=== PATIENT | male | born 1940 | race Caucasian/White ===

== ENCOUNTER → 2019-09-21 | Outpatient (CLI) | payer OTHER | LOC: SJCVC 14:18 | DX: I49.3 Ventricular premature depolarization (principal); I10 Essential (primary) hypertension; I73.9 Peripheral vascular disease, unspecified; R60.9 Edema, unspecified ==

== ENCOUNTER → 2019-10-04 | Outpatient (CLI) | payer OTHER | END | disposition home or self-care (01) | LOC: SJCVCIMAG 08:35 | DX: I49.3 Ventricular premature depolarization (principal); I10 Essential (primary) hypertension; E78.5 Hyperlipidemia, unspecified; I73.9 Peripheral vascular disease, unspecified; F17.210 Nicotine dependence, cigarettes, uncomplicated; Z79.82 Long term (current) use of aspirin; Z79.899 Other long term (current) drug therapy ==

== ENCOUNTER → 2020-04-05 | Outpatient (CLI) | payer OTHER ==
[~2020-04-05] MED LIST: ASA81BEC PO; FUROSEMIDE 20 M20 M1 PO; LISINOPRIL30 MG PO; POTASSIUM CHLO10 ME1 PO; PROAIR HFA8.5 GM INH
== END ==
LOC: SJCVC 13:04
PROVIDERS: ATTEND Internal Medicine
DX: R94.31 Abnormal electrocardiogram [ECG] [EKG] (principal); I10 Essential (primary) hypertension; I49.3 Ventricular premature depolarization; I73.9 Peripheral vascular disease, unspecified; E78.5 Hyperlipidemia, unspecified; Z79.899 Other long term (current) drug therapy

== ENCOUNTER 2020-04-10 07:45 | Inpatient (IN) | payer OTHER ==
[~2020-04-10] VITALS: Ht 188 cm; Wt 102.5 kg
[2020-04-10 07:45] VITALS: BP 116/49
[2020-04-10] MEDS ORDERED: LISINOPRIL30 MG PO (07:49)
[2020-04-10] MEDS ORDERED: PROAIR HFA8.5 GM INH ×2 (07:49)
[2020-04-10] MEDS ORDERED: FUROSEMIDE 20 M20 M1 PO (07:49)
[2020-04-10] MEDS ORDERED: ASA81BEC PO (07:49)
[2020-04-10] MEDS ORDERED: POTASSIUM CHLO10 ME1 PO (07:49)
[2020-04-10 11:34] LABS: BASOPHILS 0.4 % (0.0-2.0); EOSINOPHILS 0.1 % (0.0-3.0); HEMATOCRIT 45.2 % (42.0-52.0); HEMOGLOBIN 14.8 gm/dL (14.0-18.0); LYMPHOCYTES 6.7 % (24.0-44.0); MCH 30.5 pg (26.0-34.0); MCHC 32.8 g/dL (28.0-37.0); MCV 92.8 fL (80.0-100.0); MONOCYTES 4.1 % (1.0-8.0); PLATELET COUNT 119 thou/uL (150-400); POLYS 88.7 % (36.0-66.0); RBC 4.87 mil/uL (4.50-6.00); RDW 14.4 % (10.5-14.5); WBC 14.7 thou/uL (4.0-11.0)
[2020-04-10 11:45] LABS: CALCIUM 8.9 mg/dL (8.5-10.1); CREATININE 2.1 mg/dL (0.7-1.3)
[2020-04-10 11:48] LABS: APTT 32.1 Seconds (24.5-32.8)
[2020-04-10 13:46] VITALS: BP 176/72
[2020-04-10 13:50] VITALS: BP 158/67
[2020-04-10 16:46] VITALS: BP 172/68
--- NOTE | 2020-04-10 19:18 | NUR ---
1430 PT ADMITTED TO 3W, ROOM 363, PT ALERT AND ORIENTED X4, DENIES ANY NAUSEA AND VOMITTING. COMPLAINS OF LEFT GROIN PAIN, TOLERABLE UNTIL MOVEMENT. DESIGN SUPERVISOR PLACED ON PT, SR HR IN THE 80'S TO 90'S. PT ORIENTED TO ROOM. CONSENTS SIGNED BY PT. PT IS ON ROOM AIR, ASSESSMENT AND ADMISSION COMPLETED. PT IS UP AD ADILENE TO THE BATHRROM. CALL LIGHT AND TABLE WITHIN REACH. BED AT LOWEST LEVEL. DENIES ANY NEEDS WILLIAM.
[2020-04-10 19:41] VITALS: BP 140/71
--- NOTE | 2020-04-10 23:31 | NUR ---
ASSUMED CARE OF PATIENT AT 1900. BP ELEVATED. TRACK SUBWAY REPAIR SUPERVISOR NOTIFIED, ORDERS RECIEVED TO TREAT. COVID TEST NEGATIVE, ELECTRIC UTILITY LINEWORKER, TRACK SUBWAY REPAIR SUPERVISOR AND DR SANTANA NOTIFIED. ORDERS TO DC ENHANCED PRECAUTIONS. LET PATIENT KNOW HE MAY BE MOVED TO ANOTHER UNIT. POC GOALS ESTABLISHED, WILL CONTINUE TO MONITOR.
[2020-04-11] VITALS (8 sets, daily range): BP systolic 140–185; BP diastolic 68–92
[2020-04-11 07:37] LABS: HEMOGLOBIN 13.8 gm/dL (14.0-18.0); MCH 30.4 pg (26.0-34.0); MCHC 32.9 g/dL (28.0-37.0); MCV 92.4 fL (80.0-100.0); RBC 4.54 mil/uL (4.50-6.00); RDW 14.4 % (10.5-14.5); WBC 7.1 thou/uL (4.0-11.0)
[2020-04-11 07:55] LABS: CALCIUM 8.8 mg/dL (8.5-10.1); CREATININE 1.3 mg/dL (0.7-1.3); POTASSIUM 4.7 mmol/L (3.5-5.1)
--- NOTE | 2020-04-11 11:03 | NUR ---
INITIAL ASSESSMENT: Received consult. MYESHA reviewed chart and spoke with nursing and attending physician. Pt was admitted from home due to DVT. Pt placed in Enhanced Isolation to r/o COVID-19. Pt's test is negative. Pt to transfer to when a room is available. Pt is currently on IV abx. MYESHA placed call to pt's room. No answer. MYESHA left voice message for listed contact number: [phone]. Per chart, pt is alert/orientated x 4. Pt lives at home. Pt's PCP is Dr. Heriberto Marmolejo. SW is following to assist as needed with discharge planning.
--- NOTE | 2020-04-11 12:09 | NUR ---
RN ASSUMED PT'S CARE AT 0700AM , PT IS A&OX3, PT IS CONTINUING IV ABX AND BRETHING TREATMENT, PT 'S ISOLATION HAS DC DUE TO NEGATIVE COVID, PT TRANSFERED 4W ROOM 453 AT 1140AM, RN HAS GIVING REPORT .
--- NOTE | 2020-04-11 12:32 | NUR ---
At 1156,pt transfered to 453 from 3west after report received from Serge rosales. Assessment completed.vss.No changes in previous assessment.Pt brother here to visit.Updates given.Pt wanted to dc home today if possible but rn informed pt that doctor should be making decision when pt condition stable.No verbal c/o. Will continue to monitor.
--- NOTE | 2020-04-11 16:09 | NUR ---
PT WAS TRANSFERED FROM 3 AFTER PT TESTED NEGATIVE FOR COVID. PT WAS ADMITTED RELATED TO DVT. PT IS ON IV ABX. CM CALLED AND SPOKE WITH PT OVER THE PHONE THIS AFTERNOON. PT INDICATED HE RESIDES ALONE IN A HOUSE WITH 3 STEPS TO ENTER AND NO STEPS INSIDE. 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 PT INDICATED NO DME OR HH HX. PT INDICATED NO RESP EQUIPTMENT AT HOME CURRENTLY. PT INDICATED HE HAS TWO OLD INHALERS BUT THAT HE HADN'T USED THEM AT ALL. PT INDICATED HIS PCP IS DR. BELINDA PUENTE (NOT SPELLED CORRECTLY). PT INDICATED HIS BROTHER IS HIS AUTHORIZED CONTACT. HIS ADDRESS AND LISTED PHARMACY ARE CORRECT. PT INDICATED HE PLANS TO RETURN HOME ONCE MEDICALLY STABLE. CM TO FOLLOW INDICATED WITH DC PLANNING.
--- NOTE | 2020-04-12 04:01 | NUR ---
ASSUMED CARE OF PT AT 1900HRS. PT AOX4 AND UP AD ADILENE. PT LETS NEEDS BE KNOWN. ASSESSMENT CHARTED. LOVENOX THERAPY CONTINUED. PT DENIED PAIN, NAUSEA OR SOA. PT HAD ELEVATED BP, PRNS USED AND NURSE PRN NOTIFIED. PT WAS ABLE TO GET COMFORTABLE AND SLEEP PART OF THE SHIFT. NO S/S OF ACUTE DISTRESS. WILL CONTINUE TO MONITOR
[2020-04-12 04:52] VITALS: BP 179/82
[2020-04-12 07:00] VITALS: BP 138/70
[2020-04-12] MEDS ORDERED: XARELTO15 MG PO (09:09)
[2020-04-12 11:46] VITALS: BP 151/47
[2020-04-12] MEDS ORDERED: CEFUROXIME500 MG PO (12:16)
[2020-04-12 12:55] VITALS: BP 151/47
--- NOTE | 2020-04-12 13:49 | NUR ---
CARE TEAM INDICATED THAT PT IS MEDICALLY STABLE TO DC HOME THIS DAY. PT IS TO DC HOME TO SELF CARE. NO OTHER CM INTERVENTION INDICATED. CASE CLOSED.
--- NOTE | 2020-04-12 14:00 | NUR ---
Assumed pt care at 7am.Pt up in chair resting.Assessment completed .vss. Pt was very anxious about dc home today.Dr Vivas rounded on pt this am and dc order noted.Pt wanted to dc after lunch.Pt notified brother about cotton picking machine operator time.Dc summary compile and reviewed with pt and brother.Rx and dc summary copy given to pt.Saline lock dc'd.At 1356,pt dc home in [place] with brother accompanied by mainframe software developer.
== END 2020-04-12 13:57 | disposition home or self-care (01) | DRG 871 ==
LOC: ER 07:45 → EROBS 13:03 → 4W 13:03 → 3W 13:03 → 4W 04-11 11:48
PROVIDERS: Emergency Medicine; ADMIT Internal Medicine; ATTEND Internal Medicine
DX: A41.9 Sepsis, unspecified organism (principal); N17.0 Acute kidney failure with tubular necrosis; I82.412 Acute embolism and thrombosis of left femoral vein; E27.40 Unspecified adrenocortical insufficiency; J44.1 Chronic obstructive pulmonary disease with (acute) exacerbation; F17.210 Nicotine dependence, cigarettes, uncomplicated; I10 Essential (primary) hypertension; R91.1 Solitary pulmonary nodule; Z60.2 Problems related to living alone; Z20.828 Contact with and (suspected) exposure to other viral communicable diseases; Z79.899 Other long term (current) drug therapy; Z71.6 Tobacco abuse counseling
CPT/HCPCS: 10045; 10879

== ENCOUNTER 2021-05-09 17:41 | Inpatient (IN) | payer OTHER ==
[~2021-05-09] VITALS: Ht 188 cm; Wt 154.2 kg
[~2021-05-09 17:41] MED LIST changes: +CEFUROXIME500 MG PO; +XARELTO15 MG PO
[2021-05-09 18:15] LABS: ABSOLUTE NEUTROPHILS 3.9 thou/uL (1.4-8.2); BASOPHILS 0.9 % (0.0-2.0); EOSINOPHILS 5.5 % (0.0-3.0); HEMATOCRIT 36.6 % (42.0-52.0); HEMOGLOBIN 11.2 gm/dL (14.0-18.0); LYMPHOCYTES 24.4 % (24.0-44.0); MCH 22.2 pg (26.0-34.0); MCHC 30.6 g/dL (28.0-37.0); MCV 72.5 fL (80.0-100.0); MONOCYTES 7.3 % (1.0-8.0); PLATELET COUNT 209 thou/uL (150-400); POLYS 61.9 % (36.0-66.0); RBC 5.04 mil/uL (4.50-6.00); RDW 17.2 % (10.5-14.5); WBC 6.2 thou/uL (4.0-11.0)
[2021-05-09 18:28] LABS: APTT 34.2 Seconds (24.5-32.8); CALCIUM 8.9 mg/dL (8.5-10.1); CREATININE 1.7 mg/dL (0.7-1.3); INR 1.05; POTASSIUM 4.6 mmol/L (3.5-5.1); PROTIME 11.4 Seconds (10.5-12.1)
[2021-05-09 18:38] LABS: ALBUMIN 3.4 g/dL (3.4-5.0); TOTAL BILIRUBIN 0.1 mg/dL (0.2-1.0); TOTAL PROTEIN 7.7 g/dL (6.4-8.2)
[2021-05-09 19:01] LABS: ANISOCYTOSIS 1+; HYPOCHROMASIA 2+; MICROCYTES 1+
[2021-05-09 20:06] VITALS: BP 155/81
[2021-05-09 21:14] VITALS: BP 155/66
[2021-05-09 23:33] VITALS: BP 123/56
[2021-05-10 02:08] LABS: HEMATOCRIT 32.2 % (42.0-52.0); HEMOGLOBIN 9.7 gm/dL (14.0-18.0); MCHC 30.2 g/dL (28.0-37.0); MCV 72.6 fL (80.0-100.0); RBC 4.43 mil/uL (4.50-6.00); RDW 17.5 % (10.5-14.5); WBC 5.7 thou/uL (4.0-11.0)
[2021-05-10 02:24] LABS: CALCIUM 8.5 mg/dL (8.5-10.1); CREATININE 1.5 mg/dL (0.7-1.3); POTASSIUM 4.1 mmol/L (3.5-5.1)
--- NOTE | 2021-05-10 04:13 | NUR ---
ADMITTED THIS PATIENT ON 05/09/21 AT 2100H FROM THE EMERGENCY DEPARTMENT.ON NASAL CANNULA AT 3LPM SATURATING WELL.WITH HEPARIN DRIP INFUSING AT 12 UNITS/KG/HR.NO COMPLAINTS OF PAIN.NOT IN DISTRESS.HAD CRITICAL TROPONIN RESULT, AGITATOR OPERATOR INFORMED, PER AGITATOR OPERATOR NO NEED TO CALL CARDIO THEY ARE AWARE OF IT AND THEY ARE PLANNING TO DO THE CATH ON WEDNESDAY.ALL NEEDS ATTENDED.FOR CONTINOUS MONITORING.
[2021-05-10 04:23] VITALS: BP 125/53
[2021-05-10 08:35] VITALS: BP 147/60
[2021-05-10 09:08] LABS: CHOLESTEROL 137 mg/dL (<200); HDL CHOLESTEROL 73 mg/dL (>40); LDL CHOLESTEROL 57 mg/dL (<100); TC:HDL 1.9 Ratio (Not establshd); TRIGLYCERIDE 39 mg/dL (<150); VLDL 8 mg/dL (<40)
[2021-05-10 11:27] VITALS: BP 131/54
[2021-05-10 15:11] VITALS: BP 142/43
--- NOTE | 2021-05-10 15:25 | NUR ---
PT AFEBRILE, ADEQUATE UOP, NO BM, FAIR APPETITE. HEPARIN GTT INFUSING PER [facility] PROTOCOL. ECHO DONE AT BEDSIDE. PLAN IS TO DO PCI ON WEDNESDAY. PT AND FAMILY HAVE BEEN THOUROUGHLY UPDATED AND EDUCATED ON PT CONDITION AND POC. PT SLOWLY PROGRESSING TOWARDS POC.
[2021-05-10 19:39] VITALS: BP 143/50
--- NOTE | 2021-05-11 03:40 | NUR ---
RECEIEVED THE PATIENT AT 1900H.PATIENT IS ALERT AND ORIENTED X4.ON NASAL CANNULA AT 1LPM, SATURATING WELL.ON HEPARIN DRIP AT 12 UNITS/KG/HR, PTT HAS BEEN THERAPEUTIC FOR , TO BE REPEATED THIS MORNING.NO COMPLAINTS OF PAIN.NOT IN DISTRESS.ALL NEEDS ATTENDED.TO CONTINOUSLY MONITOR.
[2021-05-11 04:30] VITALS: BP 157/63
[2021-05-11 07:22] VITALS: BP 139/51
[2021-05-11 07:48] LABS: HEMATOCRIT 29.4 % (42.0-52.0); MCHC 30.6 g/dL (28.0-37.0); MCV 71.9 fL (80.0-100.0); RBC 4.09 mil/uL (4.50-6.00); RDW 17.3 % (10.5-14.5); WBC 6.9 thou/uL (4.0-11.0)
[2021-05-11 07:58] LABS: CALCIUM 8.6 mg/dL (8.5-10.1); CREATININE 1.3 mg/dL (0.7-1.3); POTASSIUM 4.1 mmol/L (3.5-5.1)
[2021-05-11 11:27] VITALS: BP 121/41
[2021-05-11 16:09] VITALS: BP 148/58
[2021-05-11 19:33] VITALS: BP 137/50
--- NOTE | 2021-05-11 21:17 | 2DMMODE ---
[facility] [place] [address] 2 D/M-MODE ECHOCARDIOGRAM Name: AMNA DAVE Room #: 201-P ADM IN .R.#: [id number] Admission: 05/09/21 Attend Phys: Tad Nicole Discharge: Date of : 42 Report #: [id number] THIS REPORT FOR: cc: Heriberto Marmolejo,Ck Morin MD [facility] ~ APPROVED REPORT Study performed: 05/10/2021 10:22:11 EXAM: Comprehensive 2D, Doppler, and color-flow Echocardiogram Patient Location: In-Patient Room #: 201 Status: routine BSA: 2.32 HR: 70 bpm BP: 147/60 mmHg Rhythm: NSR Other Information Study Quality: Adequate Risk Factors: Cardiac Risk Factors: Smoking Indications Chest Pain Hypertension/HDD 2D Dimensions RVDd: 36.17 mm IVSd: 13.08 (7-11mm) LVOT Diam: 21.52 (18-24mm) LVDd: 40.23 mm PWd: 10.54 (7-11mm) Ascending Ao: 32.50 (22-36mm) LVDs: 26.59 (25-40mm) Left Atrium: 36.49 (27-40mm) Aortic Root: 36.83 mm LV Single Plane 4CH: 54.72 % Volumes Left Atrial Volume (Systole) Single Plane 4CH: 53.79 mL Single Plane 2CH: 59.76 mL Biplane LA Volume: 62.00 mL LA ESV Index: 27.00 mL/m2 [facility] [address] [place] [address] 2 D/M-MODE ECHOCARDIOGRAM Name: AMNA DAVE Room #: 201-P [facility] IN ..#: [id number] Admission: 05/09/21 Attend Phys: Tad Stoll Discharge: Date of : 42 Report #: [id number] Aortic Valve AoV Peak Travis.: 1.49 m/s AO Peak Gr.: 8.89 mmHg LVOT Max P.32 mmHg LVOT Max V: 0.91 m/s TRINA Vmax: 2.22 cm2 Mitral Valve E/A Ratio: 1.0 MV Decel. Time: 2610.32 ms MV E Max Travis.: 0.60 m/s MV A Travis.: 0.61 m/s MV PHT: 756.99 ms IVRT: 78.43 ms Pulmonary Valve PV Peak Travis.: 1.00 m/s PV Peak Gr.: 3.99 mmHg Pulmonary Vein P Vein S: 0.38 m/s P Vein A: 0.28 m/s P Vein D: 0.40 m/s P Vein A Dur.: 138.4 msec P Vein S/D Ratio: 0.95 Tricuspid Valve TR Peak Travis.: 3.16 m/s RAP Estimate: 7.00 mmHg TR Peak Gr.: 39.82 mmHg RVSP: 47.00 mmHg Left Ventricle The left ventricle is normal size. There is normal LV segmental wall motion. Mild concentric left ventricular hypertrophy. Left ventricular systolic function is normal. The left ventricular ejection fraction is within the normal range. LVEF is 65-70%. Right Ventricle The right ventricle is normal size. The right ventricular systolic function is normal. Atria The left atrium size is normal. Left atrium is not well visualized. The right atrium size is normal. Aortic Valve Aortic valve is trileaflet. No aortic regurgitation is present. There is no aortic valvular stenosis. Mitral Valve The mitral valve is normal in structure. [place] [address] 2 D/M-MODE ECHOCARDIOGRAM Name: AMNA DAVE Enoc Room #: 201-P [facility] IN [facility].#: [id number] Admission: 05/09/21 Attend Phys: Tad Stoll Discharge: Date of : 42 Report #: [id number] regurgitation noted. No evidence of mitral valve stenosis. Tricuspid Valve The tricuspid valve is normal in structure. Mild tricuspid regurgitation. PAP 47 mmHg. There is moderate pulmonary hypertension. Pulmonic Valve The pulmonary valve is normal in structure. There is no pulmonic valvular regurgitation. Great Vessels The aortic root is normal in size. IVC is normal in size and collapses >50% with inspiration. Pericardium There is no pericardial effusion. There is no pleural effusion. <Conclusion> The left ventricle is normal size. Mild concentric left ventricular hypertrophy. LVEF is 65-70%. The right ventricle is normal size. The left atrium size is normal. Left atrium is not well visualized. Aortic valve is trileaflet. There is no mitral valve regurgitation noted. Mild tricuspid regurgitation. PAP 47 mmHg. There is moderate pulmonary hypertension. The aortic root is normal in size. There is no pericardial effusion. <ELECTRONICALLY SIGNED> By: Ck Downey MD, FACC 05/11/212115 15 15 Ck Downey MD, FACC /INF
[2021-05-12] VITALS (11 sets, daily range): BP systolic 117–164; BP diastolic 46–85
--- NOTE | 2021-05-12 03:55 | NUR ---
PT IS ALERT AND ORIENTED X4. LUNGS ARE CLEAR TO DIMINISHED. UP TO BATHROOM WITH ASSISTANCE. SCDS ON . ON A HEPARIN DRIP. NPO SINCE MIDNIGHT FOR CARDIAC CATH IN AM PROCEDURE. DENIES ANY COMPLAINTS OF PAIN AT THIS TIME. ABDOMEN IS SOFT NONTENDER ACTIVE BOWEL SOUNDS . NO EDMA NOTED. CALL LIGHT WITHIN REACH IF NEEDS ASSISTANCE PER NURSING
--- NOTE | 2021-05-12 07:22 | EKG ---
[place] [address] [facility] [place] [address] ELECTROCARDIOGRAM REPORT Name: AMNA DAVE Room #: 201-P ADM IN M.R.#: [id number] Admission: 05/09/21 Attend Phys: Tad Nicole Discharge: Date of : 42 Report #: [id number] [facility] ED Test Date: 2021-05-09 Test Time: 17:47:56 Pat Name: AMNA DAVE Department: Room: 201 Gender: M Manager Testing: DEON : 1940 Requested By: González Darling Order Number: [id number] MD: Emeterio Mcintyre Measurements Intervals [place] Rate: 116 P: 57 TN: 122 QRS: -6 QRSD: 87 T: 53 QT: 324 QTc: 451 Interpretive Statements Sinus tachycardia Ventricular premature complex Repol abnrm, severe global ischemia (LM/MVD) No previous ECG available for comparison Electronically Signed On 05-12-2021 7:22:51 CDT by Emeterio Mcintyre [email or web address] <ELECTRONICALLY SIGNED> By: Emeterio Mcintyre MD, [facility] 05/12/21 0722 1747 1747 Emeterio Mcintyre MD, FACC /EPI
--- NOTE | 2021-05-12 07:24 | EKG ---
[address] [employer] [place] [address] ELECTROCARDIOGRAM REPORT Name: AMNA DAVE Room #: 201-P ADM IN M.R.#: [id number] Admission: 05/09/21 Attend Phys: Tad Nicole Discharge: Date of : 42 Report #: [id number] [facility] ED Test Date: 2021-05-09 Test Time: 19:01:04 Pat Name: AMNA DAVE Department: Room: 201 Gender: M Captain Airline Pilot: MITZI PORTILLO : 1940 Requested By: González Darling Order Number: [id number] MD: Emeterio Mcintyre Measurements Intervals [place] Rate: 64 P: 49 MS: 193 QRS: 33 QRSD: 103 T: 51 QT: 427 QTc: 441 Interpretive Statements Sinus rhythm Probable left atrial enlargement Minimal ST depression, inferior leads Compared to ECG 05/09/2021 18:07:30 ST (T wave) deviation now present Junctional tachycardia no longer present Early repolarization no longer present Possible ischemia no longer present Electronically Signed On 05-12-2021 7:24:09 CDT by Emeterio Mcintyre [email or web address] <ELECTRONICALLY SIGNED> By: Emeterio Mcintyre MD, FACC 05/12/21 0724 00 00 Emeterio Mcintyre MD, FAC /EPI
--- NOTE | 2021-05-12 07:24 | EKG ---
[place] [address] [facility] [place] [address] ELECTROCARDIOGRAM REPORT Name: AMNA DAVE Room #: 201-P ADM IN M.R.#: [id number] Admission: 05/09/21 Attend Phys: Tad Nicole Discharge: Date of : 42 Report #: [id number] [facility] ED Test Date: 2021-05-09 Test Time: 18:07:30 Pat Name: AMNA DAVE Department: Room: 201 Gender: M Yarn Inspector: MICAH : 1940 Requested By: González Darling Order Number: [id number] MD: Emeterio Mcintyre Measurements Intervals [place] Rate: 115 P: DC: QRS: 1 QRSD: 89 T: 250 QT: 290 QTc: 401 Interpretive Statements Suspect Junctional tachycardia Repol abnrm, global ischemia (LM/MVD) No previous ECG available for comparison Electronically Signed On 05-12-2021 7:23:34 CDT by Emeterio Mcintyre [email or web address] <ELECTRONICALLY SIGNED> By: Emeterio Mcintyre MD, [facility] 05/12/21 0723 1807 1807 Emeterio Mcintyre MD, FACC /EPI
[2021-05-12 08:05] LABS: HEMATOCRIT 30.7 % (42.0-52.0); HEMOGLOBIN 9.4 gm/dL (14.0-18.0); MCHC 30.6 g/dL (28.0-37.0); MCV 72.1 fL (80.0-100.0); RBC 4.26 mil/uL (4.50-6.00); RDW 17.4 % (10.5-14.5); WBC 6.1 thou/uL (4.0-11.0)
--- NOTE | 2021-05-12 08:21 | NUR ---
PT OFF UNIT TO A AND P MECHANIC.
[2021-05-12 08:51] LABS: % SATURATION 5 % (20-39); IRON 22 ug/dL (65-175); TIBC 409 ug/dL (250-450)
[2021-05-12 09:04] LABS: ABSOLUTE RETIC COUNT 0.0547 10^6/uL; OBSERVED RETIC COUNT 1.28 % (0.6-2.6)
--- NOTE | 2021-05-12 10:09 | NUR ---
PT RETURN FROM UI DEVELOPER,
--- NOTE | 2021-05-12 12:39 | NUR ---
ASSESS PT WITH DR. CRAMER AND CHEST PAIN HAS RESOLVED, RIGHT GROIN CDI WITH NO HEMATOMA. PT OFF BEDREST. WILL CONTINUE TO ASSESS.
[2021-05-12] MEDS ORDERED: LIPITOR40 MG PO (15:45)
[2021-05-12] MEDS ORDERED: METOPROLOL SUCC25 M1 PO (15:45)
[2021-05-12] MEDS ORDERED: EFFIENT10 MG PO (15:45)
--- NOTE | 2021-05-12 15:48 | EKG ---
[address] [place] [address] ELECTROCARDIOGRAM REPORT Name: AMNA DAVE Room #: 201-P ADM IN M.R.#: [id number] Admission: 05/09/21 Attend Phys: Lance Johnson MD Discharge: Date of : 42 Report #: [id number] [facility] Test Date: 2021-05-12 Test Time: 10:26:31 Pat Name: AMNA DAVE Department: Room: 201 P Gender: M Casting Machine Set Up Operator: VERONA : 1940 Requested By: Ck Downey Order Number: [id number] MD: Emeterio Mcintyre Measurements Intervals [place] Rate: 79 P: 55 CA: 205 QRS: 32 QRSD: 101 T: -90 QT: 407 QTc: 467 Interpretive Statements Sinus rhythm Ventricular premature complex Probable left atrial enlargement Anteroseptal infarct, old Repol abnrm suggests ischemia, diffuse leads Compared to ECG 05/09/2021 19:01:04 Ventricular premature complex(es) now present Myocardial infarct finding now present Early repolarization now present Possible ischemia now present ST (T wave) deviation no longer present Electronically Signed On 05-12-2021 15:48:01 CDT by Emeterio Mcintyre [email or web address] <ELECTRONICALLY SIGNED> By: Emeterio Mcintyre MD, FACC 05/12/21 1548 1026 1026 Emeterio Mcintyre MD, [facility] /EPI
[2021-05-12 16:48] LABS: FOLIC ACID 35.2 ng/mL (8.6-58.9)
[2021-05-12 18:14] LABS: HEMATOCRIT 33.3 % (42.0-52.0); HEMOGLOBIN 10.1 gm/dL (14.0-18.0); MCH 21.8 pg (26.0-34.0); MCHC 30.4 g/dL (28.0-37.0); MCV 71.9 fL (80.0-100.0); RBC 4.63 mil/uL (4.50-6.00); RDW 17.2 % (10.5-14.5); WBC 6.4 thou/uL (4.0-11.0)
[2021-05-13 03:03] VITALS: BP 135/67
--- NOTE | 2021-05-13 04:40 | NUR ---
PT IS ALERT AND ORIENTED X4. LUNGS ARE CLEAR TO DIMINISHED. CONGESTED COUGH NOTED. DENIES ANY PAIN NOTED. UP TO BATHROOM WITH ASSITANCE NEEDED. NO EDEMA NOTED. RIGHT GROIN SITE CLEAN DRY AND INTACT NOTED. NO BLEEDING NOTED AT SITE. REQESTING WHEN HE WILL BE DISCHARGED. INFORM PT HE WILL BE STAYING OVERNIGHT AND AT THIS TIME I HAVE NO DISCHARGE ORDERS. CALL LIGHT WITHIN REACH IF NEEDS ASSISTANCE PER NURSING.
[2021-05-13 05:43] LABS: HEMATOCRIT 31.5 % (42.0-52.0); HEMOGLOBIN 9.8 gm/dL (14.0-18.0); MCH 22.2 pg (26.0-34.0); MCV 71.7 fL (80.0-100.0); RBC 4.39 mil/uL (4.50-6.00); RDW 17.6 % (10.5-14.5); WBC 5.7 thou/uL (4.0-11.0)
[2021-05-13 06:04] LABS: CALCIUM 8.7 mg/dL (8.5-10.1); CREATININE 1.4 mg/dL (0.7-1.3); POTASSIUM 3.8 mmol/L (3.5-5.1); TOTAL BILIRUBIN 0.5 mg/dL (0.2-1.0); TOTAL PROTEIN 7.1 g/dL (6.4-8.2)
[2021-05-13 07:00] VITALS: BP 163/73
[2021-05-13] MEDS ORDERED: BENICAR40 MG PO (07:28)
--- NOTE | 2021-05-13 07:37 | EKG ---
[address] [address] ELECTROCARDIOGRAM REPORT Name: AMNA DAVE Room #: 201-P ADM IN M.R.#: [id number] Admission: 05/09/21 Attend Phys: Lance Johnson MD Discharge: Date of : 42 Report #: [id number] [facility] Test Date: 2021-05-13 Test Time: 07:10:44 Pat Name: AMNA DAVE Department: Room: 201 P Gender: M Office Workforce Planner: VERONA : 1940 Requested By: Belkys Ivey Order Number: [id number] MD: Emeterio Mcintyre Measurements Intervals [place] Rate: 90 P: 40 [place]: 181 QRS: 24 QRSD: 110 T: 43 QT: 391 QTc: 479 Interpretive Statements Sinus rhythm Probable left atrial enlargement Anteroseptal infarct, old Compared to ECG 05/12/2021 10:26:31 Early repolarization no longer present Myocardial infarct finding still present Electronically Signed On 05-13-2021 7:37:01 CDT by Emeterio Mcintyre [email or web address] <ELECTRONICALLY SIGNED> By: Emeterio Mcintyre MD, [facility] 05/13/2137 9 9 Emeterio Mcintyre MD, [facility] /EPI
[2021-05-13 11:00] VITALS: BP 129/55
--- NOTE | 2021-05-13 11:18 | NUR ---
TOOK OVER CARE OF PATIENT AT 0700. PATIENT DENIES ANY CHEST PAIN AT THIS TIME. PATIENT RESTING IN BED. DENIES HEADACHE, SOA, FATIGUE, HEADACHE, NAUSEA OR VOMITING. PLAN TO D/C PATIENT TODAY AFTER CARDIOLOGY ROUNDS. PROVIDED SBA WHILE PATIENT AMBULATED TO BATHROOM. PATIENT APPEARS STEADY. FALL PRECAUTIONS IN PLACE, CALL LIGHT WITHIN REACH, DENIES ANY ADDITONAL NEEDS AT THIS TIME.
[2021-05-13 11:55] VITALS: BP 129/55
--- NOTE | 2021-05-13 12:27 | NUR ---
discharge education provided to patient at this time. patient agreeable to discharge plan. patient discharged via personal vehicle with nursing staff.
--- NOTE | 2021-05-13 12:53 | HC ---
[facility] [place] [address] CONSULTATION Name: AMNA DAVE Room #: 201-P [facility] IN .R.#: [id number] Admission: 05/09/21 Attend Phys: Lance Johnson MD Discharge: Date of : 41 Report #: [id number] THIS REPORT FOR: cc: Heriberto Marmolejo David J. DO McElhinney, Christian C. MD ~ cc: Ck Downey MD, Estella Lara MD, Eduni Vivas MD DATE OF SERVICE: 05/12/2021 HISTORY OF PRESENT ILLNESS: The patient is a 80-year-old male who was admitted with chest pain and was diagnosed with a non-STEMI DC. He underwent a cardiac catheterization today with stent placement. Reason for GI consultation is anemia and recent drop in his hemoglobin. Hemoglobin on admission was 11.2, today is 9.4. He denies any obvious bright red blood per rectum or melena. No previous history of GI bleed. He states his last colonoscopy was approximately 10 years ago, negative. He denies any abdominal pain. No significant heartburn. He takes Tums rarely at home. He denies any nausea, vomiting or dysphagia. His weight has been stable. He denies any diarrhea or constipation recently. There is no family history of colon cancer. Currently, denies any chest pain or shortness of breath. No fevers or chills. REVIEW OF SYSTEMS: As per HPI. PAST MEDICAL HISTORY: Non-STEMI DC, status post cardiac catheterization with stent placement today. Hypertension. History of DVT, was on Xarelto. Pulmonary nodules. ALLERGIES: No known drug allergies. SOCIAL HISTORY: He does report occasional alcohol use. He does smoke 1/2 pack of cigarettes on a daily basis. FAMILY HISTORY: Negative for colon cancer. MEDICATIONS: On admission, Xarelto, potassium chloride, Lasix, lisinopril, albuterol, and aspirin. PHYSICAL EXAMINATION: VITAL SIGNS: Temperature is 36.3, blood pressure 128/55, respiratory rate is 18, pulse is 80. GENERAL: He is alert and oriented x3, in no acute distress. HEENT: Sclerae nonicteric. Oropharynx clear. Skin graft on his right temporal area is well healed. [address] [address] CONSULTATION Name: AMNA DAVE Room #: 201-P [facility] IN [facility].#: [id number] Admission: 05/09/21 Attend Phys: Lanec Johsnon MD Discharge: Date of : 41 Report #: [id number] NECK: Supple, without lymphadenopathy. CARDIAC: Regular rate and rhythm. CHEST: Clear to auscultation bilaterally. ABDOMEN: Soft, nontender, nondistended. Normoactive bowel sounds. EXTREMITIES: No cyanosis, clubbing or edema. LABORATORY DATA: WBC 6.1, hemoglobin 9.4, MCV is 72.1, platelet count is 178. INR on admission 1.05. Sodium 140, potassium 4.1, chloride 105, bicarbonate 28, BUN 24, creatinine 1.3, glucose 99, calcium 8.6. Iron 22, TIBC is 409, percent sat is 5, total bilirubin 0.1, AST 32, ALT 26, alkaline phosphatase 55. Troponin high was 4373 yesterday. Albumin 3.4, total protein 7.7. Triglycerides 39. COVID was negative. Chest x-ray, mild patchy medial bibasilar atelectasis versus scarring. No focal consolidation. No pulmonary infiltrates or pneumothorax was noted. ASSESSMENT AND PLAN: Iron deficiency anemia. The patient denies any obvious signs of GI bleed. No previous history of GI bleed in the past. On admission, he was on Xarelto and aspirin. He denies any GI symptoms currently. Would recommend Hemoccult testing stools. Continue to monitor hemoglobin closely. Agree with Protonix, which has been started. We would consider endoscopy only if significant drop in his hemoglobin and signs of a GI bleed. Thank you for allowing me to participate in his care. <ELECTRONICALLY SIGNED> By: Greg Reyes MD 05/13/21 1253 1412 1706 Greg Reyes MD /nt
--- NOTE | 2021-05-14 08:42 | H ---
[facility] [place] [place] [address] HISTORY AND PHYSICAL Name: AMNA DAVE Room #: 201-P [facility] IN M.R.#: [id number] Admission: 05/09/21 Attend Phys: Lance Johnson MD Discharge: 05/13/21 Date of : 42 Report #: [id number] THIS REPORT FOR: cc: Heriberto Marmolejo David J. DO Mancuso, Gerald M. MD MERGED WITH [facility] ~ DATE OF SERVICE: 05/09/2021 HISTORY OF PRESENT ILLNESS: The patient is a 80-year-old male who presented to the Emergency Room at [facility] with an hour of onset of substernal chest pain, shortness of breath. The initial EKG is some subtle inferolateral changes. This worsened actually, and with some hypertension. He has not had documented coronary disease, but has significant peripheral vascular disease with prior bilateral carotid endarterectomies and most recently, looks like he was hospitalized here a year ago with a DVT and is on Xarelto. This is a difficult historian here, but states he has never had a cardiac intervention. It looks like he lives somewhat independently. He is a positive tobacco user. He does not answer the question of alcohol. He takes lisinopril, Lasix, aspirin and Xarelto. It sounds like he has been on Xarelto since last year and he did take it this morning. Subsequently, IV Lopressor and heparin drip without a bolus initiated and morphine. He is pain free at this point and marked improvement in the ST depression, which was noted predominantly inferolaterally. This is now nearly normalized. This definitely look like ischemic changes. ALLERGIES: No known drug allergies. PAST MEDICAL HISTORY: Positive for hypertension, bronchitis, DVT, COPD, tobacco use, DJD. He denies any other significant medical history. SOCIAL HISTORY: He states he lives independently. A pack a day smoker. Alcohol use to some extent. He is retired. FAMILY HISTORY: He denies that there is a history of premature coronary disease. LABORATORY DATA: Sodium 140, potassium 4.7, creatinine 1.7, glucose 123, H and H 11 and 36. Troponin is high sensitivity, is 29. Normal BNP, is 53. COVID is negative. Chest x-ray: Mild bibasilar atelectasis. No pulmonary infiltrate. PHYSICAL EXAMINATION: GENERAL: He is a difficult historian, but he is alert and appropriate. VITAL SIGNS: Blood pressure 170/92, pulse was 100, now 70s after IV Lopressor. HEENT: Eyes reveal xanthelasmas or some arcus. The pharynx is clear. NECK: The neck shows upstrokes, faint bruit on the right. Looks like prior endarterectomy scars. LUNGS: Clear with a prolonged expiratory phase. [facility] [address] [place] [address] HISTORY AND PHYSICAL Name: AMNA DAVE Room #: 201-P [facility] IN M.R.#: [id number] Admission: 05/09/21 Attend Phys: Lance Johnson MD Discharge: 05/13/21 Date of : 42 Report #: [id number] CARDIAC: Distant heart tones, S1, S2. ABDOMEN: Slightly distended, but nontender. Decreased bowel sounds. EXTREMITIES: Reveal diminished pulses. NEUROLOGIC: Intact. MUSCULOSKELETAL: Generalized arthritic changes. IMPRESSION: 1. Unstable angina/suspected non-STEMI. 2. Peripheral vascular disease with history of bilateral carotid endarterectomies. 3. Hypertension. 4. Chronic obstructive pulmonary disease, continued tobacco use. 5. Chronic kidney disease, creatinine to 1.7. 6. Pulmonary nodule and plan for biopsy at [facility] in the next month or two. RECOMMENDATIONS AND PLAN: Heparin without a bolus, with no indication to proceed emergently to the catheterization laboratory, particularly in light of the Xarelto. IV Lopressor was utilized, high-dose statin, aspirin, CCU. We will check echo, EKG and troponin in the morning. We would like to get 24-[address] before possible coronary intervention due to the direct-acting oral anticoagulant, which allegedly was taken this morning. Risks, benefits and alternatives were discussed with the patient, he elects to proceed. <ELECTRONICALLY SIGNED> By: Ck Downey MD, FACC 05/14/21 0842 18 51 Ck Downey MD, FACC /nt
--- NOTE | 2021-05-14 15:20 | CATHLAB ---
[facility] [place] [address] INVASIVE PROCEDURE REPORT Name: AMNA DAVE Room #: 201-P [facility] IN M.R.#: [id number] Admission: 05/09/21 Attend Phys: Lance Johnson MD Discharge: 05/13/21 Date of : 42 Report #: [id number] THIS REPORT FOR: cc: Heriberto Marmolejo David J. DO Mancuso, Gerald M. 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 A PINNACLE 6FR Sheath #[id number] sheath was inserted into the RFA 6f^. Coronary angiography was performed using coronary diagnostic catheters. The right coronary system was accessed and visualized with a JR4 catheter. The left coronary system was accessed and visualized with a JL4 catheter. The left ventricle was accessed and visualized with a STR PIG catheter. Left ventriculogram was performed in 30 degree projection. The patient tolerated the procedure well and there were no complications associated with the procedure. There was no hematoma. Intraoperative Conscious Sedation Sedation start time: 836 Case end Time: 931 Fentanyl 100 mcg Versed 2 mg [facility] [place] [address] INVASIVE PROCEDURE REPORT Name: AMNA DAVE Room #: 201-P [facility] IN ..#: [id number] Admission: 05/09/21 Attend Phys: Lance Johnson, Discharge: 05/13/21 Date of : 42 Report #: [id number] Fluoro Time: 6.80 minutes Dose: DAP 32646.00 cGycm2 1713 mGy Contrast Type and Amount: Visipaque 154 ml Hemodynamics The aortic pressure is 170/62 mmHg with a mean of 98 mmHg. The left ventricular pressure is 192/11 mmHg with a mean of mmHg. The left ventricular end diastolic pressure is 33 mmHg. PCI Technique Lesion Percutaneous coronary intervention was performed on the proximal left anterior descending artery segment. A LAUNCHER 6FR EBU 3.75 #[id number] Guide Catheter was used to engage the ostium. A Luge Wire .014 x 182CM #[id number] Interventional Guidewire was used to cross the lesion. BALLOON DILATION A Balloon catheter Sprinter OTW 2.75 x 12 #[id number] was inserted and inflated up to 12.00atm for 23seconds. STENT DEPLOYMENT A stent RESOLUTE FCO OTW 3.0 X 15 #[id number] was inserted and inflated up to 16.00atm for 35seconds. Additional Inflation: 18.00atm for 23seconds. Conclusion #1 Successful PTCA stent of a proximal high-grade LAD lesion placement of a 3 oh by 15 resolute Fco postdilated 3.1 mm DC grade III flow. 40% lesion just off the left main persist. #2 left main free of disease giving rise to LAD and circumflex. #3 moderate disease in a dominant circumflex system. There is no high-grade occlusive disease. Multiple first and second OM third OM patent and a distal PDA. #4 small nondominant RCA. #5 normal left jugular size and systolic function EF 60%. #6 abdominal aortogram reveals a 6 small to moderate size infrarenal aortic aneurysm with brisk flow will evaluate noninvasively. Recommendations and plan: Continue aggressive risk factor modification. Dual antiplatelet therapy initiated. Patient transferred to CCU to follow post coronary stent protocol. <ELECTRONICALLY SIGNED> By: Ck Downey MD, FACC 05/14/211518 18 18 Ck Downey MD, FACC /INF
== END 2021-05-13 13:30 | disposition home or self-care (01) | DRG 246 ==
LOC: ER 17:41 → EROBS 19:21 → 2N 19:21
PROVIDERS: Emergency Medicine; Hospitalist; Internal Medicine Cardiovascular Disease; Nurse Practitioner Adult Health; Nurse Practitioner Family; ADMIT Internal Medicine; ATTEND Internal Medicine
DX: I21.4 Non-ST elevation (NSTEMI) myocardial infarction (principal); N17.0 Acute kidney failure with tubular necrosis; N18.9 Chronic kidney disease, unspecified; D50.9 Iron deficiency anemia, unspecified; Z20.822 Contact with and (suspected) exposure to COVID-19; J44.9 Chronic obstructive pulmonary disease, unspecified; M19.90 Unspecified osteoarthritis, unspecified site; I73.9 Peripheral vascular disease, unspecified; R91.1 Solitary pulmonary nodule; F17.210 Nicotine dependence, cigarettes, uncomplicated; I12.9 Hypertensive chronic kidney disease with stage 1 through stage 4 chronic kidney disease, or unspecified chronic kidney disease; E78.5 Hyperlipidemia, unspecified; I25.110 Atherosclerotic heart disease of native coronary artery with unstable angina pectoris; I24.9 Acute ischemic heart disease, unspecified; Z95.5 Presence of coronary angioplasty implant and graft; Z86.718 Personal history of other venous thrombosis and embolism; Z79.82 Long term (current) use of aspirin; Z71.6 Tobacco abuse counseling; Z79.899 Other long term (current) drug therapy; Z28.21 Immunization not carried out because of patient refusal
CPT/HCPCS: 10081

== ENCOUNTER → 2021-06-09 | Outpatient (CLI) | payer OTHER ==
[~2021-06-09] MED LIST changes: +BENICAR40 MG PO; +EFFIENT10 MG PO; +LIPITOR40 MG PO; +METOPROLOL SUCC25 M1 PO
== END | disposition home or self-care (01) ==
LOC: SJCVCIMAG 09:11
PROVIDERS: ATTEND Internal Medicine Cardiovascular Disease
DX: I71.4 Abdominal aortic aneurysm, without rupture (principal); I70.8 Atherosclerosis of other arteries

== ENCOUNTER → 2021-06-10 | Outpatient (CLI) | payer OTHER | END | disposition home or self-care (01) | LOC: SJCVCIMAG 11:07 → SJCVC 11:07 | PROVIDERS: ATTEND Internal Medicine Cardiovascular Disease | DX: R94.31 Abnormal electrocardiogram [ECG] [EKG] (principal); I70.203 Unspecified atherosclerosis of native arteries of extremities, bilateral legs; I77.9 Disorder of arteries and arterioles, unspecified; I10 Essential (primary) hypertension; I25.10 Atherosclerotic heart disease of native coronary artery without angina pectoris; E78.00 Pure hypercholesterolemia, unspecified; F17.210 Nicotine dependence, cigarettes, uncomplicated; Z88.8 Allergy status to other drugs, medicaments and biological substances; Z79.82 Long term (current) use of aspirin; Z79.84 Long term (current) use of oral hypoglycemic drugs; Z72.89 Other problems related to lifestyle ==

== ENCOUNTER → 2021-06-23 | Outpatient (CLI) | payer OTHER ==
[~2021-06-23] VITALS: Ht 188 cm; Wt 103.4 kg
[~2021-06-23] MED LIST changes: +FUROSEMIDE 20 M20 MG PO
[2021-06-23 08:55] VITALS: BP 113/57
[2021-06-23 09:01] LABS: HEMATOCRIT 35.3 % (42.0-52.0); HEMOGLOBIN 10.8 gm/dL (14.0-18.0); MCH 22.2 pg (26.0-34.0); MCHC 30.7 g/dL (28.0-37.0); MCV 72.3 fL (80.0-100.0); RBC 4.87 mil/uL (4.50-6.00); RDW 18.4 % (10.5-14.5); WBC 5.2 thou/uL (4.0-11.0)
[2021-06-23 09:17] LABS: CALCIUM 8.9 mg/dL (8.5-10.1); CREATININE 1.4 mg/dL (0.7-1.3); POTASSIUM 4.3 mmol/L (3.5-5.1)
== END | disposition home or self-care (01) ==
LOC: CATH 07:53
PROVIDERS: ATTEND Nuclear Medicine Nuclear Cardiology
DX: I70.212 Atherosclerosis of native arteries of extremities with intermittent claudication, left leg (principal); I70.1 Atherosclerosis of renal artery; M79.605 Pain in left leg; M79.604 Pain in right leg; I10 Essential (primary) hypertension; I25.10 Atherosclerotic heart disease of native coronary artery without angina pectoris; E78.5 Hyperlipidemia, unspecified; F17.210 Nicotine dependence, cigarettes, uncomplicated; Z98.890 Other specified postprocedural states; Z79.899 Other long term (current) drug therapy; Z82.49 Family history of ischemic heart disease and other diseases of the circulatory system

== ENCOUNTER → 2021-06-30 | Outpatient (CLI) | payer OTHER ==
[~2021-06-30] VITALS: Ht 188 cm; Wt 103.6 kg
[2021-06-30 08:45] VITALS: BP 148/47
== END | disposition home or self-care (01) ==
LOC: CATH 07:38
PROVIDERS: ATTEND Nuclear Medicine Nuclear Cardiology
DX: I70.211 Atherosclerosis of native arteries of extremities with intermittent claudication, right leg (principal); M79.604 Pain in right leg; M79.605 Pain in left leg; I10 Essential (primary) hypertension; E78.5 Hyperlipidemia, unspecified; I25.10 Atherosclerotic heart disease of native coronary artery without angina pectoris; J44.9 Chronic obstructive pulmonary disease, unspecified; F17.210 Nicotine dependence, cigarettes, uncomplicated; Z98.890 Other specified postprocedural states; Z79.899 Other long term (current) drug therapy; Z88.8 Allergy status to other drugs, medicaments and biological substances